=== PATIENT | male | born 1945 | race Caucasian/White ===

== ENCOUNTER 2016-10-11 18:13 | Emergency (ER) | payer OTHER ==
[~2016-10-11] VITALS: Ht 172.7 cm; Wt 127.8 kg
[2016-10-11 18:25] VITALS: BP 150/80
[2016-10-11] MEDS ORDERED: MOTRIN600 MG PO (19:17)
[2016-10-11] MEDS ORDERED: NAPROSYN500 MG PO (19:18)
== END 2016-10-11 19:58 | disposition home or self-care (01) ==
LOC: EME 18:13 → EXP 18:13
DX: M25.461 Effusion, right knee (principal); W01.0XXA Fall on same level from slipping, tripping and stumbling without subsequent striking against object, initial encounter; E11.9 Type 2 diabetes mellitus without complications; I10 Essential (primary) hypertension
CPT/HCPCS: 73564; 99281; 99284